=== PATIENT | female | born 1965 | race Caucasian/White ===

== ENCOUNTER 2022-02-20 06:39 | Emergency (ER) | payer MEDICAID ==
[~2022-02-20] VITALS: Ht 160 cm; Wt 72.7 kg
[~2022-02-20 06:39] MED LIST: ASPI-1264 PO; ATOR40TA7 PO; CARV-49 PO; CLOP75TA15 PO; EMPA10TA PO; FURO-150 PO; INSU100I75 SQ; LORA-269 PO; METF-900 PO; NICO-687 TD; POTA8CAP20 PO; SACU1TAB PO; SPIR25TA5 PO
[2022-02-20 06:51] VITALS: BP 138/96
== END 2022-02-20 07:10 | disposition left against medical advice (07) ==
LOC: ER 06:40
DX: R06.02 Shortness of breath (principal); Z53.21 Procedure and treatment not carried out due to patient leaving prior to being seen by health care provider
CPT/HCPCS: 93005